=== PATIENT | male | born 1980 | race Caucasian/White ===

== ENCOUNTER 2023-04-24 21:21 | Emergency (ER) | payer OTHER ==
--- NOTE | 2023-04-25 07:15 | NUR ---
Arrival time was 2120 yesterday (04/24/23), departed at this time because pt is still on the ER tracker.
== END 2023-04-25 07:16 | disposition left against medical advice (07) ==
LOC: ER 21:21
DX: Z53.21 Procedure and treatment not carried out due to patient leaving prior to being seen by health care provider (principal)